=== PATIENT | female | born 1995 | race Caucasian/White ===

== ENCOUNTER 2016-12-01 19:55 | Emergency (ER) | payer BC ==
[~2016-12-01] VITALS: Ht 167.6 cm; Wt 54.0 kg
[2016-12-01 20:13] VITALS: BP 103/67; PULSE 70; RESP 16; TEMP 98.2; O2SAT 98
[2016-12-01] MEDS ORDERED: SODIUM CHLOR 0.9% 1000 ML INJ 1,000 ML IV SCH (21:42)
[2016-12-01] MEDS ORDERED: SODIUM CHLORIDE 0.9% FLUSH 10 ML FLUSH IV FLUSH PRN (21:45)
[2016-12-01] MEDS ORDERED: ONDANSETRON HCL 4 MG/2 ML VIAL IVP ONE (21:45)
--- NOTE | 2016-12-01 21:48 | PD ---
HPI Chief Complaint: GI Complaint Time Seen by Provider: 21:42 Travel History International Travel<30 days: No Contact w/Intl Traveler<30days: [place] Country Traveled to: [facility] Traveled to known affect area: No History of Present Illness HPI The patient is a 21-year-old female that complains of nausea, diarrhea and upper abdominal pain and fatigue for 4 days. 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 The patient denies any fever or blood in the stool. She states there is no possibility of , she is not sexually active. [facility] Past Medical History Medical History: Denies Significant Hx Influenza Vaccination: No ?: Not LMP: "last month" Social History Alcohol Use: No Tobacco Use: No Allergies-Medications (Allergen,Severity, Reaction): Coded Allergies: Lactose (Verified Allergy, Severe, Diarrhea, 12/01/16) Reported Meds & Prescriptions Reported Meds & Active Scripts Active No Active Prescriptions or Reported Medications Review of Systems Except as stated in HPI: all other systems reviewed are Neg Physical Exam Narrative GENERAL: The patient is alert, oriented 3, slightly dehydrated-appearing and minimal apparent distress with her abdominal discomfort. Her vital signs are normal. SKIN: Focused skin assessment warm/dry. HEAD: Atraumatic. Normocephalic. EYES: Pupils equal and round. No scleral icterus. No injection or drainage. ENT: No nasal bleeding or discharge. Mucous membranes pink and moist. NECK: Trachea midline. No JVD. CARDIOVASCULAR: Regular rate and rhythm. No murmur appreciated. RESPIRATORY: No accessory muscle use. Clear to auscultation. Breath sounds equal bilaterally. GASTROINTESTINAL: Abdomen soft, with tenderness to direct palpation in the midline epigastrium, nondistended. Hepatic and splenic margins not palpable. No guarding or rebound is present. MUSCULOSKELETAL: No obvious deformities. No clubbing. No cyanosis. No edema. NEUROLOGICAL: Awake and alert. No obvious cranial nerve deficits. Motor grossly within normal limits. Normal speech. PSYCHIATRIC: Appropriate mood and affect; insight and judgment normal. Data Data Last Documented VS Vital Signs Date Time Temp Pulse Resp B/P Pulse Ox O2 Delivery O2 Flow Rate FiO2 12/01/16 22:00 59 16 104/65 98 Room Air 12/01/16 20:13 98.2 Orders Basic Metabolic Panel (Bmp) (12/01/16 21:42) Complete Blood Count With Diff (12/01/16 21:42) Iv Access Insert/Monitor (12/01/16 21:42) Ecg Monitoring (12/01/16 21:42) Oximetry (12/01/16 21:42) Ondansetron Inj (Zofran Inj) (12/01/16 21:45) Sodium Chlor 0.9% 1000 Ml Inj (Ns 1000 M (12/01/16 21:42) Sodium Chloride 0.9% Flush (Ns Flush) (12/01/16 21:45) Enteric Path (Stool) (12/01/16 21:42) C Diff Toxin Pcr (12/01/16 21:42) Giardia Antigen (Stool) (12/01/16 21:42) Stool Ova And Parasite Screen (12/01/16 21:42) Stool Wbc (Leukocytes) (12/01/16 21:42) Metronidazole (Flagyl) (12/01/16 23:30) Labs Laboratory Tests Test 12/01/16 21:50 White Blood Count 6.6 TH/MM3 Red Blood Count 3.63 MIL/MM3 Hemoglobin 10.8 GM/DL Hematocrit 32.2 % Mean Corpuscular Volume 88.6 FL Mean Corpuscular Hemoglobin 29.8 PG Mean Corpuscular Hemoglobin 33.6 % Concent Red Cell Distribution Width 14.6 % Platelet Count 226 TH/MM3 Mean Platelet Volume 8.1 FL Neutrophils (%) (Auto) 74.9 % Lymphocytes (%) (Auto) 13.9 % Monocytes (%) (Auto) 8.3 % Eosinophils (%) (Auto) 1.4 % Basophils (%) (Auto) 1.5 % Neutrophils # (Auto) 5.0 TH/MM3 Lymphocytes # (Auto) 0.9 TH/MM3 Monocytes # (Auto) 0.5 TH/MM3 Eosinophils # (Auto) 0.1 TH/MM3 Basophils # (Auto) 0.1 TH/MM3 CBC Comment DIFF FINAL Differential Comment Sodium Level 140 MEQ/L Potassium Level 4.1 MEQ/L Chloride Level 104 MEQ/L Carbon Dioxide Level 29.3 MEQ/L Anion Gap 7 MEQ/L Blood Urea Nitrogen 10 MG/DL Creatinine 0.63 MG/DL Estimat Glomerular Filtration 120 ML/MIN Rate Random Glucose 91 MG/DL Calcium Level 8.2 MG/DL MDM Medical Decision Making Medical Screen Exam Complete: Yes Emergency Medical Condition: Yes Medical Record Reviewed: Yes Interpretation(s) The CBC shows a hemoglobin of 10.8 and hematocrit of 32.2 but is otherwise unremarkable. The white count is only 6,600. The basic metabolic profile is normal except for a calcium of 8.2. Differential Diagnosis Anemia, bacterial enteritis, viral gastroenteritis, GI bleedunlikely Narrative Course The patient has a good history with her exposure to contaminated water and a foreign country for bacterial enteritis. This may be a viral gastroenteritis also. At this time I will empirically treat her with metronidazole, 500 mg 3 times daily for 10 days. She is to increase liquid intake. She also has a mild anemia which shows iron deficiency type and she should take vitamins with iron. She denies having heavy menstrual periods. She denies any melanotic or bloody stools. Diagnosis Primary Impression: Bacterial enteritis, unspecified Additional Instructions: As we discussed, it is probably a good idea for your mild anemia to take vitamins with iron. Keep an eye on your stools, if they are bloody or black you should be seen and reevaluated. Follow-up with your primary care physician this week. Do not drink alcohol with Flagyl. Med/Other Pt SpecificInfo: Prescription(s) given Scripts Metronidazole (Flagyl)500 Mg Ysq810 Mg PO TID 10 Days Ref 0 Prov:Tien Garrett MD 12/01/16 Disposition: 01 DISCHARGE HOME Condition: Stable Tien Garrett MD December 01, 2016 21:48
[2016-12-01 21:57] LABS: BASOPHIL # 0.1 TH/MM3 (0-0.2); BASOPHIL % 1.5 % (0.0-2.0); EOSINOPHIL # 0.1 TH/MM3 (0-0.4); EOSINOPHIL % 1.4 % (0.0-4.0); HEMATOCRIT 32.2 % (35.0-46.0); HEMO FLAGS DIFF FINAL; LYMPH % 13.9 % (9.0-44.0); LYMPHOCYTE # 0.9 TH/MM3 (1.0-4.8); MEAN CELL VOLUME 88.6 FL (80.0-100.0); MEAN CORPUSCULAR HEMOGLOBIN 29.8 PG (27.0-34.0); MEAN CORPUSCULAR HGB CONC 33.6 % (32.0-36.0); MONO % 8.3 % (0.0-8.0); NEUT % 74.9 % (16.0-70.0); PLATELET COUNT 226 TH/MM3 (150-450); RED BLOOD COUNT 3.63 MIL/MM3 (4.00-5.30); RED CELL DISTRIBUTION WIDTH 14.6 % (11.6-17.2); WHITE BLOOD COUNT 6.6 TH/MM3 (4.0-11.0)
[2016-12-01 22:00] VITALS: BP 104/65; PULSE 59; RESP 16; O2SAT 98
[2016-12-01 22:11] LABS: BICARBONATE 29.3 MEQ/L (21.0-32.0)
[2016-12-01 22:19] LABS: POTASSIUM 4.1 MEQ/L (3.5-5.1)
[2016-12-01 23:05] VITALS: BP 97/67; PULSE 58; RESP 17; O2SAT 99
[2016-12-01] MEDS ORDERED: METR-1 PO (23:26)
[2016-12-01] MEDS ORDERED: metroNIDAZOLE 500 MG TAB PO ONE (23:30)
[2016-12-01] MEDS ORDERED: PROM25TA5 PO (23:44)
[2016-12-01 23:46] VITALS: BP 101/64
[2016-12-02 02:38] LABS: C. DIFF EPI 027 PRESUMPTIVE NEGATIVE (NEGATIVE); C. DIFF TOXIN PCR NEGATIVE (NEGATIVE)
== END 2016-12-01 23:47 | disposition home or self-care (01) ==
LOC: PHED 19:55
DX: A04.9 Bacterial intestinal infection, unspecified (principal); D50.9 Iron deficiency anemia, unspecified; R10.10 Upper abdominal pain, unspecified; R53.83 Other fatigue
CPT/HCPCS: 80048; 85025; 87205; 87328; 87493; 87506; 96361; 96374; 99284; J2405; J7030; 87329